=== PATIENT | female | born 2000 | race Caucasian/White ===

== ENCOUNTER → 2024-01-12 | Emergency (ER) | payer BC ==
[~2024-01-12] MED LIST: KETOROLAC 30 MG/ML INJ ONE; METOCLOPRAMIDE 10 MG/2mL INJ ONE
--- NOTE | 2024-01-12 21:57 | RAD REPORT ---
EXAM DESCRIPTION: Lesvia Single View01/12/2024 9:50 pm CLINICAL HISTORY: Chest pain COMPARISON: none FINDINGS: The lungs appear clear of acute infiltrate. The heart is normal size IMPRESSION: No acute abnormalities displayed
[2024-01-12 22:35] LABS: Specific Gravity 1.014 (1.005-1.030); Sqamous Epithelial <5 /HPF (None Seen); Urine Bacteria <20 /HPF (<20); Urine Bilirubin NEGATIVE (Negative); Urine Blood Negative (Negative); Urine Clarity Turbid (Clear); Urine Color Light-Yellow (Yellow); Urine Crystals Unidentified Few /HPF (None Seen); Urine Culture Reflex Order REFLEXED; Urine Glucose NEGATIVE (Negative); Urine Ketones NEGATIVE (Negative); Urine Micro Reflex YN NO BILL MICROSCOPIC; Urine Nitrite NEGATIVE (Negative); Urine Protein TRACE (Negative); Urine RBC <5 /HPF (None Seen); Urine Urobilinogen Normal (Normal); Urine WBC 20-50 /HPF (<5)
[2024-01-13 01:26] LABS: Potassium 3.2 mEq/L (3.5-5.1)
[2024-01-13 01:27] LABS: Bilirubin Total 0.2 mg/dL (0.2-1.0)
[2024-01-13 01:28] LABS: Albumin/Globulin Ratio 0.7 (1.1-1.8); Bilirubin Direct 0.1 mg/dL (0-0.2); Bilirubin Indirect, Calculated 0.1 mg/dL (0.2-0.8); Globulin 4.1 g/dL (2.3-3.5); Magnesium 1.9; Protein, Total 7.1 g/dL (6.4-8.2); Troponin High Sensitivity 3.5 (<58.9)
--- NOTE | 2024-01-13 01:34 | ER ---
Nurse's Notes [facility] Name: Brandi Yuen Age: 23 yrs Sex: Female : 2000 Arrival Date: 01/12/2024 Time: 20:57 Bed 6 Private MD: Diagnosis: Tension-type headache;Elevated blood pressure reading, hypoglobulinemia, discomfort Presentation: 01/11 21:30 Chief complaint: Patient states: [place] since last night, BP reading at home of 162/102; pt km8 2 weeks post . Coronavirus screen: Client denies travel out of the [place] in the last 14 days. Ebola Screen: No symptoms or risks identified at this time. Initial Sepsis Screen: Does the patient meet any 2 criteria? No. Patient's initial sepsis screen is negative. Does the patient have a suspected source of infection? No. Patient's initial sepsis screen is negative. Risk Assessment: Do you want to hurt yourself or someone else? Patient reports no desire to harm self or others. Onset of symptoms was January 11, 2024. 21:30 Method Of Arrival: Ambulatory 8 21:30 Acuity: MICHELLE 3 8 Triage Assessment: 21:35 Headache History: The patient has had previous headaches and this one is similar to km8 previous episodes, and this one is more severe than previous episodes. General: Appears in no apparent distress. uncomfortable, Behavior is calm, cooperative, appropriate for age. Pain: Complains of pain in forehead Pain currently is 4 out of 10 on a pain scale. Quality of pain is described as dull, Pain began 1 day ago. Also complains of no other associated symptoms. EENT: No signs and/or symptoms were reported regarding the EENT system. Neuro: Level of Consciousness is awake, alert, obeys commands, Oriented to person, place, time, situation. Cardiovascular: Denies chest pain, shortness of breath, Patient's skin is warm and dry. Respiratory: Airway is patent Respiratory effort is even, unlabored, Respiratory pattern is regular, symmetrical. GI: No signs and/or symptoms were reported involving the gastrointestinal system. : No signs and/or symptoms were reported regarding the genitourinary system. Derm: No signs and/or symptoms reported regarding the dermatologic system. Skin is intact, is healthy with good turgor, Skin is dry, Skin is pink, warm \T\ dry. normal, Skin temperature is warm. Musculoskeletal: No signs and/or symptoms reported regarding the musculoskeletal system. Range of motion: intact in all extremities. 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 - Social history:: Smoking status: Patient denies any tobacco usage or history of. Patient/guardian denies using alcohol, street drugs. - Family history:: not pertinent. Screenin/22 01:58 [facility] ED Fall Risk Assessment (Adult) History of falling in the last 3 months, jb4 including since admission No falls in past 3 months (0 pts) Confusion or Disorientation No (0 pts) Intoxicated or Sedated No (0 pts) Impaired Gait No (0 pts) Mobility Assist Device Used No (0 pt) Altered Elimination No (0 pt) Score/Fall Risk Level 0 - 2 = Low Risk Oriented to surroundings, Maintained a safe environment. Abuse screen: Denies threats or abuse. Nutritional screening: No deficits noted. Tuberculosis screening: No symptoms or risk factors identified. Assessment: 01/11 23:45 General: Appears in no apparent distress. comfortable, Behavior is calm, cooperative. jb4 Pain: Complains of pain in headache Pain does not radiate. Pain currently is 4 out of 10 on a pain scale. Pain began 1 day ago. Neuro: Level of Consciousness is awake, alert, obeys commands, Oriented to person, place, time, situation. Cardiovascular: Patient's skin is warm and dry. Respiratory: Airway is patent Respiratory effort is even, unlabored, Respiratory pattern is regular, symmetrical. GI: No signs and/or symptoms were reported involving the gastrointestinal system. : No signs and/or symptoms were reported regarding the genitourinary system. EENT: No signs and/or symptoms were reported regarding the EENT system. Derm: Skin is intact, Skin is pink, warm \T\ dry. Musculoskeletal: Circulation, motion, and sensation intact. Range of motion: intact in all extremities. 01/12 01:10 Reassessment: Patient appears in no apparent distress at this time. Patient and/or jb4 family updated on plan of care and expected duration. Pain level reassessed. Patient is alert, oriented x 3, equal unlabored respirations, skin warm/dry/pink. 01:58 Reassessment: Patient appears in no apparent distress at this time. Patient and/or jb4 family updated on plan of care and expected duration. Pain level reassessed. Patient is alert, oriented x 3, equal unlabored respirations, skin warm/dry/pink. Vital Signs: 01/11 21:30 BP 131 / 91; Pulse 80; Resp 16; Temp 98.1(O); Pulse Ox 99% on R/A; Weight 93.89 kg (R); km8 Height 5 ft. 1 in. (R); Pain 4/10; 01/12 01:10 BP 134 / 97; Pulse 71; Resp 16; Pulse Ox 98% on R/A; jb4 01/11 21:30 Body Mass Index 39.11 (93.89 kg, 154.94 cm) [facility] 01/11 21:30 Pain Scale: Adult [facility] [place] Coma Score: 01/11 22:05 Eye Response: spontaneous(4). Motor Response: obeys commands(6). Verbal Response: sp4 oriented(5). Total: 15. ED Course: 21:22 Patient arrived in ED. gm2 21:24 Garry Jenkins MD is Attending Physician. sp4 21:32 Triage completed. km8 21:32 Arm band placed on right wrist. km8 21:52 XRAY Chest (1 view) In Process Unspecified. EDMS 01/12 00:10 Brittany Yadav, MACIEL is Primary Nurse. lg3 00:10 EKG done, by ED staff, reviewed by Garry Jenkins MD. lg3 00:11 Basic Metabolic Panel Sent. jb4 00:11 CBC with Diff Sent. jb4 00:11 LFT's Sent. jb4 00:11 Magnesium Sent. jb4 00:11 NT PRO-BNP Sent. jb4 00:11 PT-INR Sent. jb4 00:11 Troponin HS Sent. jb4 01:58 Patient has correct armband on for positive identification. Bed in low position. Call jb4 light in reach. Side rails up X 1. Provided Education on: discharge instructions.. 01:58 No provider procedures requiring assistance completed. IV discontinued, intact, jb4 bleeding controlled, No redness/swelling at site. Pressure dressing applied. Administered Medications: 00:11 Drug: metoCLOPramide IVP 10 mg IVP once; over 1 to 2 minutes Route: IVP; Site: left jb4 antecubital; 00:11 Drug: Ketorolac IVP 30 mg IVP once Route: IVP; Site: left antecubital; jb4 Medication: :58 VIS not applicable for this client. jb4 Outcome: 01:33 Discharge ordered by . sp4 :58 Discharged to home ambulatory, jb4 01:58 Condition: stable 01:58 Discharge instructions given to patient, Instructed on discharge instructions, follow up and referral plans. Demonstrated understanding of instructions, follow-up care, 02:00 Patient left the ED. jb4 Signatures: Dispatcher [employer] EDMS Eusebio Cary, RN RN jb4 Brittany Yadav RN MACIEL lg3 Garry Jenkins MD MD sp4 Cara Scott 2 Nandini Gamboa RN RN km8
--- NOTE | 2024-01-13 01:34 | EDPHYS ---
Physician Documentation [facility] Name: Mesha Philip Age: 23 yrs Sex: Female : 2000 Arrival Date: 01/12/2024 Time: 20:57 Bed 6 Private MD: ED Physician Garry Jenkins HPI: 01/11 21:24 This 23 yrs old Other Female presents to ER via Unassigned with complaints of High sp4 Blood Pressure, POST OP FROM HAVING A BABY 2 WEEKS AGO, Headache. 22:01 23-year-old female presents for evaluation of elevated blood pressure.. sp4 22:04 Patient is 13 days at the [facility], patient states she sp4 delivered at 38 weeks and 5 days her first born via spontaneous vaginal delivery. Patient had preeclampsia and was given IV antihypertensive prior for delivery. Patient was induced. Patient at this time takes Ativan as needed for anxiety. . Patient states her pressure prior to arrival was 160/100. 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 - Social history:: Smoking status: Patient denies any tobacco usage or history of. Patient/guardian denies using alcohol, street drugs. - Family history:: not pertinent. ROS: 22:05 Constitutional: Negative for fever, chills, and weight loss, positive headache, sp4 positive elevated blood pressure 22:05 All other systems are negative, Exam: 22:05 Constitutional: This is a well developed, well nourished patient who is awake, alert, sp4 and in no acute distress. Head/Face: Normocephalic, atraumatic. Eyes: Pupils equal round and reactive to light, extra-ocular motions intact. Lids and lashes normal. Conjunctiva and sclera are not injected. Cornea within normal limits. Periorbital areas with no swelling, redness, or edema. ENT: Nares patent. No nasal discharge, no septal abnormalities noted. Tympanic membranes are normal and external auditory canals are clear. Oropharynx with no redness, swelling, or masses, exudates, or evidence of obstruction, uvula midline. Mucous membranes moist. Neck: Trachea midline, no thyromegaly or masses palpated, and no cervical lymphadenopathy. Supple, full range of motion without nuchal rigidity, or vertebral point tenderness. Chest/axilla: Normal chest wall appearance and motion. Nontender with no deformity. No lesions are appreciated. Cardiovascular: Regular rate and rhythm with a normal S1 and S2. No gallops, murmurs, or rubs. Normal PMI, no JVD. No pulse deficits. Respiratory: Lungs have equal breath sounds bilaterally, clear to auscultation and percussion. No rales, rhonchi or wheezes noted. No increased work of breathing, no retractions or nasal flaring. Abdomen/GI: Soft, with normal bowel sounds. No distension or tympany. No guarding or rebound. No evidence of tenderness throughout. Back: No spinal tenderness. No costovertebral tenderness. Skin: Warm, dry with normal turgor. Normal color with no rashes, no lesions, and no evidence of cellulitis. MS/ Extremity: Pulses equal, no cyanosis. Neurovascular intact. Full, normal range of motion. Neuro: Awake and alert, GCS 15, oriented to person, place, time, and situation. Cranial nerves II-XII grossly intact. Motor strength 5/5 in all extremities. Sensory grossly intact. Psych: Awake, alert, with orientation to person, place and time. Behavior, mood, and affect are within normal limits Vital Signs: 21:30 BP 131 / 91; Pulse 80; Resp 16; Temp 98.1(O); Pulse Ox 99% on R/A; Weight 93.89 kg (R); km8 Height 5 ft. 1 in. (R); Pain 10; 01/12 01:10 BP 134 / 97; Pulse 71; Resp 16; Pulse Ox 98% on R/A; jb4 01/11 21:30 Body Mass Index 39.11 (93.89 kg, 154.94 cm) km8 01/11 21:30 Pain Scale: Adult km8 Janeth Coma Score: 01/11 22:05 Eye Response: spontaneous(4). Motor Response: obeys commands(6). Verbal Response: sp4 oriented(5). Total: 15. MDM: 21:26 Patient medically screened. sp4 01/12 00:17 ED course: RADIOLOGYSERVICES REPORT Name: MESHA PHILIP Acct Number: s :2000 Age:23 Sex:F Ord Phys: Garry Jenkins MD Unit Number: [id number] [facility] Dr: CAREN Status: REG ER Exam Date: 01/12/24 EXAM DESCRIPTION: Lesvia Single View01/12/2024 9:50 pm CLINICAL HISTORY: Chest pain COMPARISON: none FINDINGS: The lungs appear clear of acute infiltrate. The heart is normal size IMPRESSION: No acute abnormalities displayed. 01:31 Differential diagnosis: hypertensive crisis, Malignant HTN, cardiomyopathy. Data sp4 reviewed: vital signs, nurses notes, lab test result(s), EKG, radiologic studies. Consideration of Admission/Observation Escalation of care including admission/observation considered. ED course: Patient managed to relax and get some sleep. Patient is feeling better. Blood pressure is normal. Patient stable for discharge home. No signs of hypertensive emergency or cardiomyopathy. . 01/11 21:26 Order name: Basic Metabolic Panel; Complete Time: sp4 01/11 21:26 Order name: CBC with Diff; Complete Time: 00:17 sp4 01/11 21:26 Order name: LFT's; Complete Time: :34 sp4 01/11 21:26 Order name: Magnesium; Complete Time: 34 sp4 01/11 21:26 Order name: NT PRO-BNP; Complete Time: 34 sp4 01/11 21:26 Order name: PT-INR; Complete Time: 01:15 sp4 01/11 21:26 Order name: Troponin HS; Complete Time: :34 sp4 01/11 22:08 Order name: Urinalysis W/Microscopic; Complete Time: 23:17 sp4 01/11 22:40 Order name: Urine Culture EDHI 01/11 21:26 Order name: XRAY Chest (1 view); Complete Time: 23:17 sp4 01/11 21:26 Order name: EKG; Complete Time: 21:27 sp4 01/11 21:26 Order name: Cardiac monitoring; Complete Time: 00:11 sp4 01/11 21:26 Order name: EKG - Nurse/Tech; Complete Time: 00:11 sp4 01/11 21:26 Order name: IV Saline Lock; Complete Time: 00:11 sp4 01/11 21:26 Order name: Labs collected and sent; Complete Time: 00:11 sp4 01/11 21:26 Order name: O2 Per Protocol; Complete Time: :39 sp4 01/11 21: Order name: O2 Sat Monitoring; Complete Time: :39 sp4 Administered Medications: 00:11 Drug: metoCLOPramide IVP 10 mg IVP once; over 1 to 2 minutes Route: IVP; Site: left jb4 antecubital; 00:11 Drug: Ketorolac IVP 30 mg IVP once Route: IVP; Site: left antecubital; jb4 Disposition Summary: 01/13/24 01:33 Discharge Ordered Notes: Location: Home sp4 Problem: new sp4 Symptoms: have improved sp4 Condition: Stable sp4 Diagnosis - Tension-type headache sp4 - Elevated blood pressure reading, hypoglobulinemia, discomfort sp4 Followup: sp4 - With: Private Physician - When: 7 - 10 days - Reason: Recheck today's complaints Discharge Instructions: - Discharge Summary Sheet sp4 - How to Take Your Blood Pressure, [id number] sp4 Forms: - Patient Portal Instructions sp4 Signatures: Dispatcher [employer] Eusebio Evans RN RN jb4 Garry Jenkins MD MD sp4 Nandini Gamboa RN RN km8
[2024-01-13 02:24] VITALS: BP 134/97; TEMP 98.1; O2SAT 98
--- NOTE | 2024-01-16 14:29 | EKG ---
Test Date: 2024-01-12 Test Time: 23:06:05 Childcare Attendant: [place] MEASUREMENT RESULTS: Intervals: Rate: 73 IN: 138 QRSD: 88 QT: 404 QTc: 445 [place]: P: 65 IN: 138 QRS: 82 T: 35 INTERPRETIVE STATEMENTS: Normal sinus rhythm Normal ECG No previous ECG available for comparison Electronically Signed On 01-16-24 14:17:23 CDT by Evin Lowe
== END ==
LOC: ER 20:57
DX: G44.209 Tension-type headache, unspecified, not intractable (principal); R03.0 Elevated blood-pressure reading, without diagnosis of hypertension; D80.1 Nonfamilial hypogammaglobulinemia; O99.893 Other specified diseases and conditions complicating puerperium; F41.9 Anxiety disorder, unspecified; Z88.0 Allergy status to penicillin; Z88.2 Allergy status to sulfonamides; Z88.8 Allergy status to other drugs, medicaments and biological substances; Z91.040 Latex allergy status
CPT/HCPCS: 93005; 87088; 85025; 81001; 87086; 80048; 36415; 83735; 85610; 80076; 87077; 87186; 84484; 83880; 71045; 96375; 96374; 99284; J2765